=== PATIENT | female | born 1985 | race African-American/Black ===

== ENCOUNTER 2024-05-04 18:05 | Emergency (ER) | payer OTHER ==
[2024-05-04 18:37] VITALS: BP 109/73; PULSE 72; RESP 20; TEMP 98.3; BMI 21.4
== END 2024-05-04 20:15 | disposition home or self-care (01) ==
LOC: JERFT 18:05
DX: S93.402A Sprain of unspecified ligament of left ankle, initial encounter (principal); S80.02XA Contusion of left knee, initial encounter; W01.0XXA Fall on same level from slipping, tripping and stumbling without subsequent striking against object, initial encounter; Y93.02 Activity, running
CPT/HCPCS: 73562-TC-LT-FY; 73610-TC-LT-FY; 99284-25